=== PATIENT | male | born 1975 | race Caucasian/White ===

== ENCOUNTER → 2016-07-17 | Day surgery (SDC) | payer BC ==
[~2016-07-17] VITALS: Ht 172.7 cm; Wt 76.5 kg
[~2016-07-17] MED LIST: BACTROBAN N1 GM/TUBE NOSE; CPAP INH; NASAL SPRAY30 ML; NORCO 5-325 TA1 EACH PO; RANITIDINE HCL150 MG PO
--- NOTE | ~2016-07-17 | OR ---
PATIENT'S NAME: ROLF BARLOW [facility] AGE: 40 Y [address] ROOM: [place] [address] LOCATION: [facility] [place] DATE: 07/17/2016 OR/Procedure Report DISCHARGE DATE: FAMILY PHYSICIAN: PHYSICIAN, NO ATTENDING PHYSICIAN: MANDY AGUILAR SURGEON: Mandy Aguilar MD WALLPAPER CONSULTANT: None. DATE OF PROCEDURE: 07/17/2016 PREOPERATIVE DIAGNOSES: 1. Nasal airway obstruction. 2. Nasal vestibular stenosis. 3. Septal deviation. 4. Inferior turbinate hypertrophy. 5. Left tonsil mass. POSTOPERATIVE DIAGNOSES: 1. Nasal airway obstruction. 2. Nasal vestibular stenosis. 3. Septal deviation. 4. Inferior turbinate hypertrophy. 5. Left tonsil mass. PROCEDURES: 1. Endonasal septorhinoplasty including septoplasty to harvest or septal cartilage insertion of bilateral film inspector grafts. 2. Repair of nasal vestibular stenosis. 3. Inferior turbinate reduction. 4. Left tonsillectomy. ANESTHESIA: General endotracheal. COMPLICATIONS: None. BLOOD LOSS: 50 mL. SPECIMEN: Left tonsil. FINDINGS: 1. 1 cm x 1 cm white left tonsil mass, fully excised with the tonsillectomy. 2. Right tonsil unremarkable. 3. Septum significantly deviated to the left, narrow nose. 4. Excellent improvement in the internal nasal valve diameter after film inspector graft placement. PATIENT'S NAME: ROLF BARLOW [facility] AGE: 40 Y [address] ROOM: [place] [address] LOCATION: [facility] [place] ADMIT DATE: 07/17/2016 OR/Procedure Report DISCHARGE DATE: FAMILY PHYSICIAN: PHYSICIAN, NO ATTENDING PHYSICIAN: MANDY AGUILAR INDICATIONS: The patient is a 40-year-old male, who initially presented to the clinic with complaints of nasal airway obstruction. He also had a history of intermittent tonsillar infections and a small tonsillar cyst or mass that he had been monitoring and signed for sometime and has not changed. On exam, he was found to have a significant improved with modified Jennifer maneuver and therefore we discussed septorhinoplasty including film inspector graft placement, turbinate reduction, and a left tonsillectomy with permanent pathology to be performed. Risks, benefits, and alternatives were discussed. All of the above and he provided informed consent. DESCRIPTION OF PROCEDURE: The patient was brought to the operative suite, placed on table supine position. All pressure points were padded. Time-out was performed correctly identifying the patient procedure. General endotracheal anesthesia was initiated. The patient was rotated counterclockwise 90 degrees. Injection was performed 1% lidocaine with epinephrine along the septal cartilage and inferior turbinates as well as the angular arteries. Afrin-soaked pledgets were placed in the nose. We turned our attention to the tonsil portion. A Elise-Augie mouth gag was placed. The left tonsil was grasped and excised fully with standard Bovie cautery. Spot cautery was utilized for hemostasis. Minimal bleeding was noted. The specimen was sent to pathology. The Elise-Augie mouth gag was removed. We returned our attention to the nose and we started with turbinate reduction, making stab incisions from the face of the inferior turbinates followed by elevation with a Erie, followed by microdebridement Submucous resection. After this was performed, the turbinates were lateralized bilaterally. We then turned our attention to the septorhinoplasty. A full transfixion incision was created and dissection was 1st performed on the left than the right a submucoperichondrial plane. Once the septal cartilage was fully freed, an L strut was created and the remaining cartilage resected. Deviated bone was also resected. The cartilage was preserved on the back table. Tight pockets were created with a Erie elevator between the upper lateral cartilage on the septum on each side. Baffle Installer grafts were fashioned approximately 3 mm x 18 mm. Each of these were placed into each pocket, a larger on the left than the right. A 4-0 plain gut sutures were used through and through the septum to hold this in position. Following this, the incisions were closed with 5-0 fast gut sutures. Meade splints were placed on each side and sutured into place with 3-0 Prolene suture. The entire nose was irrigated and suctioned out. The tonsil was once again re-evaluated, suctioned vigorously, and no bleeding was noted. There was some oozing from the nose that was controlled with Afrin. MANDY AGUILAR MD PATIENT'S NAME: ROLF BARLOW [facility] AGE: 40 Y [address] ROOM: [place] [address] LOCATION: [facility] [place] AD[place] DATE: 07/17/2016 OR/Procedure Report DISCHARGE DATE: FAMILY PHYSICIAN: NEVILLE CRUZ ATTENDING PHYSICIAN: MANDY AGUILAR/candy /[id number] d: 07/17/16 1301 t: 07/24/16 0826, OPERATIVE SUMMARY
--- NOTE | 2016-07-17 12:17 | NUR ---
1100 FENTANYL 25 MCG GIVEN IVP FOR C/O PAIN THAT PT RATES 10/02. 1145 DRIP PADS CHANGED. STAND AT BEDSIDE TO VOID. AFRIN NASAL SPRAY BILATERAL NARES. CALLED AND UPDATED
--- NOTE | 2016-07-17 15:28 | NUR ---
1340 NORCO 5/325 MG 2 TABS PO FOR C/O PAIN. AFRIN SPRAY BILATERALLY TO NOSTRILS. DRIP PAD CHANGED.
== END | disposition disaster alternative care site (69) ==
LOC: GPOC 07-15 14:00 → GSDC 06:11 → GPOC 14:00
PROC: 09SM0ZZ Reposition Nasal Septum, Open Approach (ICD-10-PCS; principal; 2016-07-17)
PROC: 09Q Ear, Nose, Sinus, Repair (ICD-10-PCS; 2016-07-17)
PROC: 09BL0ZZ Excision of Nasal Turbinate, Open Approach (ICD-10-PCS; 2016-07-17)
PROC: 0CBPXZZ Excision of Tonsils, External Approach (ICD-10-PCS; 2016-07-17)
DX: H04.553 Acquired stenosis of bilateral nasolacrimal duct (principal); J34.2 Deviated nasal septum; J98.8 Other specified respiratory disorders; J34.3 Hypertrophy of nasal turbinates; J35.8 Other chronic diseases of tonsils and adenoids; K21.9 Gastro-esophageal reflux disease without esophagitis; G47.30 Sleep apnea, unspecified
CPT/HCPCS: A9270; J0690; J1100; J2001; J2250; J2405; J3010; J7120